=== PATIENT | male | born 1990 | race Two or more races ===

== ENCOUNTER 2018-10-16 13:23 | Emergency (ER) | payer OTHER ==
[~2018-10-16] VITALS: Ht 184.2 cm; Wt 122.5 kg
[2018-10-16 13:56] LABS: BILIRUBIN,URINE NEGATIVE (NEG); CLARITY,URINE CLEAR; COLOR,URINE YELLOW; NITRITE,URINE NEGATIVE (NEG); PROTEIN,URINE NEGATIVE (NEG-TRACE)
[2018-10-16 14:01] LABS: BACTERIA,URINE 0 /HPF (0-FEW); RBC,URINE 0 /HPF (0-2); WBC,URINE 0 /HPF (0-4)
[2018-10-16 14:02] LABS: BARBITURATES NEG (NEG); BENZODIAZEPINES NEG (NEG); CANNABINOIDS NEG (NEG); COCAINE NEG (NEG); METHADONE NEG (NEG); OPIATES NEG (NEG); PHENCYCLIDINE NEG (NEG)
[2018-10-16 14:03] LABS: AMPHETAMINE/METHAMPHETAMINE NEG (NEG)
--- NOTE | 2018-10-16 14:04 | RAD ---
KNEE BILAT 3V History: Pain since yesterday. Right knee: No evidence of an acute fracture. No aggressive bone destruction. Mild tibial tubercle hypertrophy. Left knee: No evidence of acute fracture or bone destruction. Joint spaces are intact. No definite soft tissue abnormality. IMPRESSION: No acute bone abnormality. Electronically signed by: Armando Palma MD (10/16/2018 2:01 PM) [facility]
[2018-10-16 14:05] LABS: BASO % 1 % (0-3); EOS # 0.1 x10^3/uL (0.0-0.7); EOS % 2 % (0-3); HEMATOCRIT 48.9 % (39.0-53.0); HEMOGLOBIN 17.2 g/dL (13.0-17.5); LYMPH # 2.5 x10^3/uL (1.0-4.8); LYMPH % 38 % (24-48); MEAN CORPUSCULAR HEMOGLOBIN 31 pg (25-35); MEAN CORPUSCULAR HGB CONC 35 g/dL (31-37); MEAN CORPUSCULAR VOLUME 88 fL (79-100); MONO # 0.6 x10^3/uL (0.0-1.1); MONO % 10 % (0-9); NEUT # 3.3 x10^3uL (1.8-7.7); NEUT % 50 % (31-73); PLATELET COUNT 170 x10^3/uL (140-400); RED BLOOD COUNT 5.56 x10^6/uL (4.30-5.70); RED CELL DISTRIBUTION WIDTH 13.5 % (11.5-14.5); WHITE BLOOD COUNT 6.7 x10^3/uL (4.0-11.0)
[2018-10-16 14:18] LABS: CALCIUM 8.7 mg/dL (8.5-10.1); CREATININE 1.1 mg/dL (0.7-1.3); GFR 78.6; POTASSIUM 3.8 mmol/L (3.5-5.1)
[2018-10-16 14:24] LABS: ALBUMIN 3.8 g/dL (3.4-5.0); TOTAL BILIRUBIN 1.1 mg/dL (0.2-1.0); TOTAL PROTEIN 7.7 g/dL (6.4-8.2)
--- NOTE | 2018-10-16 14:43 | RAD ---
CT scan of the abdomen and pelvis without contrast 10/16/2018 CLINICAL HISTORY: Left upper quadrant abdominal pain and flank pain. TECHNIQUE: Unenhanced, contiguous, 2 mm axial sections were obtained through abdomen and pelvis. One or more of the following individualized dose reduction techniques were utilized for this study: 1. Automated exposure control. 2. Adjustment of the mA and/or kV according to patient size. 3. Use of iterative reconstruction technique. FINDINGS: Images through the lung bases demonstrate minimal dependent subsegmental atelectasis bilaterally. The liver parenchyma has a decreased attenuation consistent with fatty infiltration. The spleen, pancreas, and adrenal glands are within normal limits. No renal or ureteral calculus is seen. There is no evidence of obstruction of either collecting system. The abdominal aorta tapers normally. The gallbladder is contracted. No free fluid or free air is seen within the abdomen. There is no evidence of bowel obstruction. Air and stool is seen throughout the colon. The appendix is partially visualized and is within normal limits. Images through the pelvis demonstrate the urinary bladder to be partially contracted. No distal ureteral calculus is seen. No free fluid is noted. Minimal S-shaped curvature of the thoracolumbar spine is seen. IMPRESSION: No acute abnormality is seen. Electronically signed by: Mo Ring MD (10/16/2018 2:39 PM) [email or web address]
[2018-10-16 14:44] VITALS: BP 142/56
--- NOTE | 2018-10-16 14:49 | PHYS DOC ---
Past Medical History Past Medical History: No Pertinent History Past Surgical History: No Surgical History Alcohol Use: None Drug Use: None Adult General Chief Complaint Chief Complaint: ABDOMINAL PAIN HPI HPI Patient is a 28 year old male with no significant medical history presents to the ED today complaining of 8 out of 10 left flank pain radiating to his left upper quadrant and bilateral knee pain that began yesterday. Patient denies any known injury. Patient states the pain is worse on movement. He is overweight. Denies anything specific currently relieving his pain. He describes the pain as sharp and intermittent. Review of Systems Review of Systems Constitutional: Denies fever or chills [] Eyes: Denies change in visual acuity, redness, or eye pain [] HENT: Denies nasal congestion or sore throat [] Respiratory: Denies cough or shortness of breath [] Cardiovascular: No additional information not addressed in HPI [] GI: Reports left flank pain radiating to the left upper quadrant, denies nausea, vomiting, bloody stools or diarrhea [] : Denies dysuria or hematuria [] Musculoskeletal: Bilateral knee pain Integument: Denies rash or skin lesions [] Neurologic: Denies headache, focal weakness or sensory changes [] All other systems were reviewed and found to be within normal limits, except as documented in this note. Allergies Allergies Allergies Coded Allergies Type Severity Reaction Last Updated Verified No Known Drug Allergies 10/16/18 No Physical Exam Physical Exam Constitutional: Overweight patient. Well developed, well nourished, no acute distress, non-toxic appearance. [] HENT: Normocephalic, atraumatic, bilateral external ears normal, oropharynx moist, no oral exudates, nose normal. [] Eyes: PERRLA, EOMI, conjunctiva normal, no discharge. [] Neck: Normal range of motion, no tenderness, supple, no stridor. [] Cardiovascular:Heart rate regular rhythm, no murmur [] Lungs & Thorax: Bilateral breath sounds clear to auscultation [] Abdomen: Bowel sounds normal, soft, no tenderness, no masses, no pulsatile masses. [] Skin: Warm, dry, no erythema, no rash. [] Back: No tenderness, no CVA tenderness. [] Extremities: No tenderness, no cyanosis, no clubbing, ROM intact, no edema. [] Neurologic: Alert and oriented X 3, normal motor function, normal sensory function, no focal deficits noted. [] Psychologic: Affect normal, judgement normal, mood normal. [] Current Patient Data Vital Signs Vital Signs Date Time Temp Pulse Resp B/P (MAP) Pulse Ox O2 Delivery O2 Flow Rate FiO2 10/16/18 13:30 97.7 72 18 152/86 (108) 97 Room Air 97.7 Lab Values Laboratory Tests Test 10/16/18 13:30 10/16/18 13:55 Urine Collection Type Unknown Urine Color Yellow Urine Clarity Clear Urine pH 8.0 Urine Specific [place] 1.025 Urine Protein Negative mg/dL (NEG-TRACE) Urine Glucose (UA) Negative mg/dL (NEG) Urine Ketones (Stick) Negative mg/dL (NEG) Urine Blood Negative (NEG) Urine Nitrite Negative (NEG) Urine Bilirubin Negative (NEG) Urine Urobilinogen Dipstick 1.0 mg/dL (0.2 mg/dL) Urine Leukocyte Esterase Negative (NEG) Urine RBC 0 /HPF (0-2) Urine WBC 0 /HPF (0-4) Urine Bacteria 0 /HPF (0-FEW) Urine Mucus Slight /LPF Urine Opiates Screen Neg (NEG) Urine Methadone Screen Neg (NEG) Urine Barbiturates Neg (NEG) Urine Phencyclidine Screen Neg (NEG) Urine Amphetamine/Methamphetamine Neg (NEG) Urine Benzodiazepines Screen Neg (NEG) Urine Cocaine Screen Neg (NEG) Urine Cannabinoids Screen Neg (NEG) Urine Ethyl Alcohol Neg (NEG) White Blood Count 6.7 x10^3/uL (4.0-11.0) Red Blood Count 5.56 x10^6/uL (4.30-5.70) Hemoglobin 17.2 g/dL (13.0-17.5) Hematocrit 48.9 % (39.0-53.0) Mean Corpuscular Volume 88 fL (79-100) Mean Corpuscular Hemoglobin 31 pg (25-35) Mean Corpuscular Hemoglobin Concent 35 g/dL (31-37) Red Cell Distribution Width 13.5 % (11.5-14.5) Platelet Count 170 x10^3/uL (140-400) Neutrophils (%) (Auto) 50 % (31-73) Lymphocytes (%) (Auto) 38 % (24-48) Monocytes (%) (Auto) 10 % (0-9) H Eosinophils (%) (Auto) 2 % (0-3) Basophils (%) (Auto) 1 % (0-3) Neutrophils # (Auto) 3.3 x10^3uL (1.8-7.7) Lymphocytes # (Auto) 2.5 x10^3/uL (1.0-4.8) Monocytes # (Auto) 0.6 x10^3/uL (0.0-1.1) Eosinophils # (Auto) 0.1 x10^3/uL (0.0-0.7) Basophils # (Auto) 0.0 x10^3/uL (0.0-0.2) Sodium Level 138 mmol/L (136-145) Potassium Level 3.8 mmol/L (3.5-5.1) Chloride Level 102 mmol/L (98-107) Carbon Dioxide Level 28 mmol/L (21-32) Anion Gap 8 (6-14) Blood Urea Nitrogen 10 mg/dL (8-26) Creatinine 1.1 mg/dL (0.7-1.3) Estimated GFR (Cockcroft-Gault) 78.6 BUN/Creatinine Ratio 9 (6-20) Glucose Level 118 mg/dL (70-99) H Calcium Level 8.7 mg/dL (8.5-10.1) Total Bilirubin 1.1 mg/dL (0.2-1.0) H Aspartate Amino Transferase (AST) 34 U/L (15-37) Alanine Aminotransferase (ALT) 60 U/L (16-63) Alkaline Phosphatase 104 U/L (46-116) Total Protein 7.7 g/dL (6.4-8.2) Albumin 3.8 g/dL (3.4-5.0) Albumin/Globulin Ratio 1.0 (1.0-1.7) Lipase 103 U/L (73-393) Ethyl Alcohol Level < 10 mg/dL (0-10) Laboratory Tests 10/16/18 13:55 Laboratory Tests 10/16/18 13:55 EKG EKG [] Radiology/Procedures Radiology/Procedures []PROCEDURE: CT ABDOMEN PELVIS WO CONTRAST CT scan of the abdomen and pelvis without contrast 10/16/2018 CLINICAL HISTORY: Left upper quadrant abdominal pain and flank pain. TECHNIQUE: Unenhanced, contiguous, 2 mm axial sections were obtained through abdomen and pelvis. One or more of the following individualized dose reduction techniques were utilized for this study: 1. Automated exposure control. 2. Adjustment of the mA and/or kV according to patient size. 3. Use of iterative reconstruction technique. FINDINGS: Images through the lung bases demonstrate minimal dependent subsegmental atelectasis bilaterally. The liver parenchyma has a decreased attenuation consistent with fatty infiltration. The spleen, pancreas, and adrenal glands are within normal limits. No renal or ureteral calculus is seen. There is no evidence of obstruction of either collecting system. The abdominal aorta tapers normally. The gallbladder is contracted. No free fluid or free air is seen within the abdomen. There is no evidence of bowel obstruction. Air and stool is seen throughout the colon. The appendix is partially visualized and is within normal limits. Images through the pelvis demonstrate the urinary bladder to be partially contracted. No distal ureteral calculus is seen. No free fluid is noted. Minimal S-shaped curvature of the thoracolumbar spine is seen. IMPRESSION: No acute abnormality is seen. Electronically signed by: Mo Ring MD (10/16/2018 2:39 PM) [email or web address] DICTATED and SIGNED BY: MO RING MD DATE: 10/16/18 [id number] PROCEDURE: KNEE BILAT 3V KNEE BILAT 3V History: Pain since yesterday. Right knee: No evidence of an acute fracture. No aggressive bone destruction. Mild tibial tubercle hypertrophy. Left knee: No evidence of acute fracture or bone destruction. Joint spaces are intact. No definite soft tissue abnormality. IMPRESSION: No acute bone abnormality. Electronically signed by: Armando Palma MD (10/16/2018 2:01 PM) [facility] DICTATED and SIGNED BY: ARMANDO PALMA MD DATE: 10/16/18 1405 Course & Med Decision Making Course & Med Decision Making Pertinent Labs and Imaging studies reviewed. (See chart for details) This is a 28-year-old male patient presenting to the ED today with left flank pain radiating to the left upper quadrant as well as bilateral knee pain, no known injury, symptoms since yesterday, bilateral knee x-rays interpreted by r adiologist are negative for any acute findings. CT of the abdomen and pelvic is negative for any acute findings, labs including UA are negative. Patient's pain could be musculoskeletal. We will discharge him with cyclobenzaprine and diclofenac. Dragon Disclaimer Dragon Disclaimer This electronic medical record was generated, in whole or in part, using a voice recognition dictation system. Departure Departure Impression: Primary Impression: Knee pain, bilateral Additional Impression: Left flank pain Disposition: HOME, SELF-CARE Condition: STABLE Referrals: UNKNOWN PCP NAME (PCP) follow up with your doctor in 1 week Patient Instructions: Flank Pain, [id number], Knee Pain, [id number] Additional Instructions: You were evaluated in the emergency room for pain. Your work up was negative for any acute findings. Take the prescribed medications as ordered. Follow-up with your doctor in 1-2 weeks. Consider weight loss including diet and exercise. Scripts Cyclobenzaprine Hcl (CYCLOBENZAPRINE HCL) 10 Mg Tablet 1 TAB PO TID, #30 TAB Prov: WILLY ROBERTSON APRN 10/16/18 Diclofenac Sodium (DICLOFENAC SODIUM) 50 Mg Tablet.dr 1 TAB PO BID, #20 TAB 0 Refills Prov: WILLY ROBERTSON APRN 10/16/18 Problem Qualifiers Primary Impression: Knee pain, bilateral Chronicity: acute Qualified Codes: M25.561 - Pain in right knee; M25.562 - Pain in left knee WILLY ROBERTSON APRN Oct 16, 2018 14:49
[2018-10-16] MEDS ORDERED: CYCL10TA2 PO (14:55)
[2018-10-16] MEDS ORDERED: DICL50TA4 PO (14:55)
== END 2018-10-16 15:02 | disposition home or self-care (01) ==
LOC: ER 13:23
DX: M25.561 Pain in right knee (principal); M25.562 Pain in left knee; R10.12 Left upper quadrant pain
CPT/HCPCS: 36415; 73562; 74176; 80053; 80307; 81001; 83690; 85025; 99285; G0480

== ENCOUNTER 2019-08-05 16:56 | Emergency (ER) | payer SELFPAY ==
[~2019-08-05] VITALS: Ht 165.1 cm; Wt 95.0 kg
[~2019-08-05 16:56] MED LIST: CYCL10TA2 PO; DICL50TA4 PO
--- NOTE | 2019-08-05 17:32 | PHYS DOC ---
Past Medical History Past Medical History: No Pertinent History (KENYETTA ALEGRIA APRN) Past Surgical History: No Surgical History (KENYETTA ALEGRIA APRN) Smoking Status: Never Smoker Alcohol Use: None Drug Use: None (KENYETTA ALEGRIA APRN) Adult General Chief Complaint Chief Complaint: COUGH HPI HPI Patient is a 29 year old male who presents with cough that started 4 AM today. The patient works at a [employer] and states that he was told by his wo rk to come in for evaluation. Denies shortness of breath, denies fever. Complete ROS were reviewed and found to be within normal limits, except as documented in the HPI (KENYETTA ALEGRIA APRN) Allergies Allergies Allergies Coded Allergies Type Severity Reaction Last Updated Verified No Known Drug Allergies 10/16/18 No (IVETT SORIANO MD) Physical Exam Physical Exam Constitutional: Well developed, well nourished, no acute distress, non-toxic appearance. [] HENT: Normocephalic, atraumatic, Cardiovascular:Heart rate regular rhythm, no murmur [] Lungs & Thorax: Bilateral breath sounds clear to auscultation [] Abdomen: Bowel sounds normal, soft, no tenderness, no masses, no pulsatile masses. [] Skin: Warm, dry, no erythema, no rash. [] Neurologic: Alert and oriented X 3, normal motor function, normal sensory function, no focal deficits noted. [] Psychologic: Affect normal, judgement normal, mood normal. [] (KENYETTA ALEGRIA APRN) Current Patient Data Vital Signs Vital Signs Date Time Temp Pulse Resp B/P (MAP) Pulse Ox O2 Delivery O2 Flow Rate FiO2 08/05/19 19:41 78 18 134/76 (95) 95 Room Air 08/05/19 17:13 98.8 98.8 (IVETT SORIANO MD) Lab Values Laboratory Tests Test 08/05/19 18:18 White Blood Count 9.2 x10^3/uL (4.0-11.0) Red Blood Count 5.71 x10^6/uL (4.30-5.70) H Hemoglobin 17.7 g/dL (13.0-17.5) H Hematocrit 50.1 % (39.0-53.0) Mean Corpuscular Volume 88 fL (79-100) Mean Corpuscular Hemoglobin 31 pg (25-35) Mean Corpuscular Hemoglobin Concent 35 g/dL (31-37) Red Cell Distribution Width 14.2 % (11.5-14.5) Platelet Count 161 x10^3/uL (140-400) Neutrophils (%) (Auto) 56 % (31-73) Lymphocytes (%) (Auto) 34 % (24-48) Monocytes (%) (Auto) 9 % (0-9) Eosinophils (%) (Auto) 1 % (0-3) Basophils (%) (Auto) 1 % (0-3) Neutrophils # (Auto) 5.1 x10^3/uL (1.8-7.7) Lymphocytes # (Auto) 3.1 x10^3/uL (1.0-4.8) Monocytes # (Auto) 0.8 x10^3/uL (0.0-1.1) Eosinophils # (Auto) 0.1 x10^3/uL (0.0-0.7) Basophils # (Auto) 0.1 x10^3/uL (0.0-0.2) Prothrombin Time 12.4 SEC (11.7-14.0) Prothrombin Time INR 1.0 (0.8-1.1) Activated Partial Thromboplast Time 35 SEC (24-38) Sodium Level 137 mmol/L (136-145) Potassium Level 3.5 mmol/L (3.5-5.1) Chloride Level 102 mmol/L (98-107) Carbon Dioxide Level 26 mmol/L (21-32) Anion Gap 9 (6-14) Blood Urea Nitrogen 10 mg/dL (8-26) Creatinine 1.0 mg/dL (0.7-1.3) Estimated GFR (Cockcroft-Gault) 87.2 BUN/Creatinine Ratio 10 (6-20) Glucose Level 110 mg/dL (70-99) H Calcium Level 8.4 mg/dL (8.5-10.1) L Total Bilirubin 0.5 mg/dL (0.2-1.0) Aspartate Amino Transferase (AST) 35 U/L (15-37) Alanine Aminotransferase (ALT) 61 U/L (16-63) Alkaline Phosphatase 97 U/L (46-116) Total Protein 7.6 g/dL (6.4-8.2) Albumin 3.9 g/dL (3.4-5.0) Albumin/Globulin Ratio 1.1 (1.0-1.7) Procalcitonin < 0.10 ng/mL (0.00-0.10) Laboratory Tests 08/05/19 18:18 Laboratory Tests 08/05/19 18:18 (IVETT SORIANO MD) Lab Values Laboratory Tests Test 08/05/19 18:18 White Blood Count 9.2 x10^3/uL (4.0-11.0) Red Blood Count 5.71 x10^6/uL (4.30-5.70) H Hemoglobin 17.7 g/dL (13.0-17.5) H Hematocrit 50.1 % (39.0-53.0) Mean Corpuscular Volume 88 fL (79-100) Mean Corpuscular Hemoglobin 31 pg (25-35) Mean Corpuscular Hemoglobin Concent 35 g/dL (31-37) Red Cell Distribution Width 14.2 % (11.5-14.5) Platelet Count 161 x10^3/uL (140-400) Neutrophils (%) (Auto) 56 % (31-73) Lymphocytes (%) (Auto) 34 % (24-48) Monocytes (%) (Auto) 9 % (0-9) Eosinophils (%) (Auto) 1 % (0-3) Basophils (%) (Auto) 1 % (0-3) Neutrophils # (Auto) 5.1 x10^3/uL (1.8-7.7) Lymphocytes # (Auto) 3.1 x10^3/uL (1.0-4.8) Monocytes # (Auto) 0.8 x10^3/uL (0.0-1.1) Eosinophils # (Auto) 0.1 x10^3/uL (0.0-0.7) Basophils # (Auto) 0.1 x10^3/uL (0.0-0.2) Prothrombin Time 12.4 SEC (11.7-14.0) Prothrombin Time INR 1.0 (0.8-1.1) Activated Partial Thromboplast Time 35 SEC (24-38) Sodium Level 137 mmol/L (136-145) Potassium Level 3.5 mmol/L (3.5-5.1) Chloride Level 102 mmol/L (98-107) Carbon Dioxide Level 26 mmol/L (21-32) Anion Gap 9 (6-14) Blood Urea Nitrogen 10 mg/dL (8-26) Creatinine 1.0 mg/dL (0.7-1.3) Estimated GFR (Cockcroft-Gault) 87.2 BUN/Creatinine Ratio 10 (6-20) Glucose Level 110 mg/dL (70-99) H Calcium Level 8.4 mg/dL (8.5-10.1) L Total Bilirubin 0.5 mg/dL (0.2-1.0) Aspartate Amino Transferase (AST) 35 U/L (15-37) Alanine Aminotransferase (ALT) 61 U/L (16-63) Alkaline Phosphatase 97 U/L (46-116) Total Protein 7.6 g/dL (6.4-8.2) Albumin 3.9 g/dL (3.4-5.0) Albumin/Globulin Ratio 1.1 (1.0-1.7) Procalcitonin < 0.10 ng/mL (0.00-0.10) Laboratory Tests 08/05/19 18:18 Laboratory Tests 08/05/19 18:18 (KENYETTA ALEGRIA APRN) EKG EKG [] (KENYETTA ALEGRIA APRN) Radiology/Procedures Radiology/Procedures [][facility] [address] [place] [address] IMAGING REPORT Signed PATIENT: CHAD MAYNARD ACCOUNT: [id number] : 1990 LOCATION: ER AGE: 29 SEX: M EXAM STATUS: REG ER ORD. PHYSICIAN: KENYETTA ALEGRIA APRN REASON: cough PROCEDURE: PORTABLE CHEST 1V Exam: Chest one view INDICATION: Cough TECHNIQUE: Frontal view of the chest Comparisons: None FINDINGS: The cardiomediastinal silhouette and pulmonary vessels are within normal limits. Subtle patchy bilateral airspace disease. No pleural effusion. IMPRESSION: Subtle patchy bilateral airspace disease, may represent edema versus infectious process. Electronically signed by: Rebekah Mauricio MD (08/05/2019 6:05 PM) [id number] DICTATED and SIGNED BY: REBEKAH MAURICIO MD DATE: 08/05/191804 (KENYETTA ALEGRIA APRN) Course & Med Decision Making Course & Med Decision Making Pertinent Labs and Imaging studies reviewed. (See chart for details) I will get a portable chest x-ray to check for pneumonia and then will discharge home. Discussed with the patient that he will need to self isolate for the next 14 days due to his cough. Patient has bilateral pneumonia on his chest x-ray. Labs are unremarkable at this time. Will discharge the patient home with doxycycline. Also discussed with the patient that this could be coronavirus but have no way of testing him at this time. (KENYETTA ALEGRIA APRN) Course & Med Decision Making I was not involved in the care of this patient after 1800 on August 05, 2019. (IVETT SORIANO MD) Dragon Disclaimer Dragon Disclaimer This electronic medical record was generated, in whole or in part, using a voice recognition dictation system. (KENYETTA ALEGRIA APRN) Departure Departure Impression: Primary Impression: Suspected 2019 novel coronavirus infection Additional Impression: Pneumonia Disposition: HOME, SELF-CARE Condition: STABLE Referrals: NO PCP (PCP) Patient Instructions: Cough, Adult Additional Instructions: Thank you for visiting [facility]. We appreciate you trusting us with your care. If any additional problems come up don't hesitate to return to visit us. Please follow up with your primary care provider so they can plan additional care if needed and know about the problem that you had. If symptoms worsen come back to the Emergency Department. Any concerning symptoms that start such as chest pain, shortness of air, weakness or numbness on one side of the body, running high fevers or any other concerning symptoms return to the ER. You have a viral syndrome which may include symptoms like muscle aches, fevers, chills, runny nose, cough, sneezing, sore throat, vomiting, or diarrhea. One of the potential viruses that you may have is SARS-CoV-2, the virus that causes COVID-19, also known as the Coronavirus. You are just as likely to have a different viral infection such as the common cold, flu, etc. Most patients with the Coronavirus have mild symptoms and recover on their own. Resting, staying hydrated, and sleep from known cases can be helpful. As of todays visit, you are well enough to go home and treat your symptoms with oral fluids and over the counter medications. Coronavirus testing is not performed on most people with mild symptoms who are being discharged from the emergency department. If Coronavirus testing was performed the results will not be available for possibly up to 2-3 days. If your result is positive you will be contacted. Please follow the following precautions at home: 1) Stay home except to get medical care. 2) As advised by the CDC we recommend you stay in your home and minimize contact with other people. We do not want you to spread the infection. 3) Those who are older or have significant medical issues may have more severe symptoms from this infection. We recommend self-isolation,FOR AT LEAST 7 DAYS after your 1st day of symptoms. AFTER you feel better please wait AT LEAST ANOTHER WEEK before returning to regular activities and being around other people! 4) IF you become sicker and have difficulty breathing, chest pain, unable to eat/drink, severe vomiting, diarrhea, or weakness you may need to return to the Emergency Department. 5) You should restrict activities outside your home, except for getting medical care. DO NOT go to work, school, or public areas. Avoid using public transportation, ride sharing, or taxis. 6) Separate yourself from other people in your home. You should use a separate bathroom if possible. 7) Avoid sharing personal household items such as dishes, cups, eating utensils, towels, etc. 8) Clean all high touch surfaces every day (door knobs, counter tops, etc). Use a household cleaning spray or wipe per label instructions. 9) Clean your hands often. Wash your hands with soap and water for at least 20 seconds. 10) Cover your mouth and nose with a tissue when you cough or sneeze. 11) Throw used tissues in a trash can and immediately wash your hands. For additional resources please visit the CDC website or the [place] Department [facility] ([phone]). Scripts Doxycycline Hyclate (DOXYCYCLINE HYCLATE) 100 Mg Capsule 1 CAP PO BID for 10 Days, #20 CAP Prov: KENYETTA ALEGRIA APRN 08/05/19 Problem Qualifiers KENYETTA ALEGRIA APRN Aug 05, 2019 17:32 IVETT SORIANO MD Aug 07, 2019 06:47
--- NOTE | 2019-08-05 18:08 | RAD ---
Exam: Chest one view INDICATION: Cough TECHNIQUE: Frontal view of the chest Comparisons: None FINDINGS: The cardiomediastinal silhouette and pulmonary vessels are within normal limits. Subtle patchy bilateral airspace disease. No pleural effusion. IMPRESSION: Subtle patchy bilateral airspace disease, may represent edema versus infectious process. Electronically signed by: Rebekah Hensley MD (08/05/2019 6:05 PM) [id number]
[2019-08-05 18:30] LABS: BASO # 0.1 x10^3/uL (0.0-0.2); BASO % 1 % (0-3); EOS # 0.1 x10^3/uL (0.0-0.7); EOS % 1 % (0-3); HEMATOCRIT 50.1 % (39.0-53.0); HEMOGLOBIN 17.7 g/dL (13.0-17.5); LYMPH # 3.1 x10^3/uL (1.0-4.8); LYMPH % 34 % (24-48); MEAN CORPUSCULAR HEMOGLOBIN 31 pg (25-35); MEAN CORPUSCULAR HGB CONC 35 g/dL (31-37); MEAN CORPUSCULAR VOLUME 88 fL (79-100); MONO # 0.8 x10^3/uL (0.0-1.1); MONO % 9 % (0-9); NEUT # 5.1 x10^3/uL (1.8-7.7); NEUT % 56 % (31-73); PLATELET COUNT 161 x10^3/uL (140-400); RED BLOOD COUNT 5.71 x10^6/uL (4.30-5.70); RED CELL DISTRIBUTION WIDTH 14.2 % (11.5-14.5); WHITE BLOOD COUNT 9.2 x10^3/uL (4.0-11.0)
[2019-08-05 18:41] LABS: CALCIUM 8.4 mg/dL (8.5-10.1); GFR 87.2; POTASSIUM 3.5 mmol/L (3.5-5.1)
[2019-08-05 18:44] LABS: PROTHROMBIN TIME PATIENT 12.4 SEC (11.7-14.0)
[2019-08-05 18:46] LABS: ALBUMIN 3.9 g/dL (3.4-5.0); ALBUMIN/GLOBULIN RATIO 1.1 (1.0-1.7); TOTAL BILIRUBIN 0.5 mg/dL (0.2-1.0); TOTAL PROTEIN 7.6 g/dL (6.4-8.2)
[2019-08-05] MEDS ORDERED: DOXY100C2 PO (19:13)
[2019-08-05 19:41] VITALS: BP 134/76
== END 2019-08-05 20:07 | disposition home or self-care (01) ==
LOC: ER 16:56
DX: J18.9 Pneumonia, unspecified organism (principal); R05 Cough
CPT/HCPCS: 36415; 71045; 80053; 84145; 85025; 85610; 85730; 99284